=== PATIENT | male | born 1945 | race Caucasian/White ===

== ENCOUNTER 2019-08-17 13:29 | Inpatient (IN) ==
[2019-08-17] MEDS ORDERED: ASPIRIN 325 MG TABLET PO STA (14:00)
[2019-08-17 14:13] LABS: Basophils % 0.3 % (0.0-0.8); Eosinophils % 0.1 % (0.00-10.9); Hematocrit 51.2 VOL% (42.0-52.0); Immature Granulocytes % 0.4 %; Immature Granulocytes Absolute 0.06 #; Lymphocytes # 0.8 10*3/uL (1.4-4.0); Lymphocytes % 5.2 % (21.2-54.2); Mean Corpuscular HGB Conc 33.2 GM/DL (32-36); Mean Corpuscular Volume 92.4 FL (87-102); Mean Platelet Volume 9.6 FL (9.6-12.0); Monocytes % 5.9 % (1.7-12.7); Neutrophils % 88.1 % (38.7-73.9); Platelet Count 325 T/CUMM (130-400); Red Blood Count 5.54 MC/CUMM (3.8-5.5); Red Cell Distribution Width 12.5 % (9.3-17.3); White Blood Count 14.4 T/CUMM (4-12)
[2019-08-17 14:21] LABS: Albumin 3.4 G/DL (3.4-5.0); Bilirubin,Total 2.1 MG/DL (0.2-1.0); Calcium 8.4 MG/DL (8.5-10.1); INR 1.1; Osmolality,Calculated 283.7 MOS/KG (273-304); PT Patient Result 11.9 SECS (9.8-11.9); Total Protein 7.2 G/DL (6.4-8.3)
[2019-08-17] MEDS ORDERED: GLUCAGON 1 MG VIAL IM PRN (15:17)
[2019-08-17] MEDS ORDERED: DEXTROSE 10% 250 ML BAG IV PRN (15:17)
[2019-08-17] MEDS ORDERED: ACETAMINOPHEN 325 MG TABLET PO PRN (16:16)
[2019-08-17] MEDS: INSULIN REGULAR 100 UNIT/ML SUBCUT SCH ×2 (16:45→22:12)
[2019-08-17] MEDS: SODIUM CHLORIDE 0.9% 1,000 ML IV SCH (17:16)
[2019-08-17] MEDS: ONDANSETRON 4 MG/2 ML VIAL IV PRN ×2 (17:25→20:46)
[2019-08-17] MEDS ORDERED: ALUMINUM/MAGNES/SIMETH MAX STR 30 ML UDCUP PO PRN (20:36)
[2019-08-17] MEDS: ASCORBIC ACID 500 MG TABLET PO SCH (21:20)
[2019-08-17] MEDS: ATORVASTATIN 20 MG TABLET PO SCH (21:20)
[2019-08-17] MEDS: METOPROLOL TARTRATE 25 MG TABLET PO SCH (21:21)
[2019-08-17] MEDS: FLUTICASONE/SALMETEROL 250-50 DISKUS 14 DOSE INH SCH (23:10)
[2019-08-18] MEDS: ONDANSETRON 4 MG/2 ML VIAL IV PRN ×3 (01:02→10:47)
[2019-08-18] MEDS: SODIUM CHLORIDE 0.9% 1,000 ML IV SCH ×3 (03:23→21:00)
[2019-08-18 04:55] LABS: Apearance,Urine CLEAR (Clear); Bilirubin,Urine Negative (Negative); Blood, Urine Negative (Negative); Glucose,Urine (UA) >=500 mg/dL (Negative); Hyaline Casts,Urine 42 /LPF (0-3); Ketones,Urine 5 mg/dL (Negative); Mucus,Urine Occasional /LPF (Occasional); Nitrite,Urine Negative (Negative); Protein,Urine 100 MG/DL; RBC,Urine 2 /HPF (0-4); Renal Epithelial Cells,Urine Occasional /HPF (<1); Squamous Epithelial Cell,Urine Occasional /HPF (0-10); Urine Color Amber (Yellow); WBC,Urine 1 /HPF (0-6)
[2019-08-18 05:44] LABS: Basophils % 0.3 % (0.0-0.8); Eosinophils % 0.4 % (0.00-10.9); Hematocrit 49.4 VOL% (42.0-52.0); Hemoglobin 16.1 GM/DL (14.0-18.0); Immature Granulocytes % 0.6 %; Immature Granulocytes Absolute 0.05 #; Lymphocytes # 1.2 10*3/uL (1.4-4.0); Lymphocytes % 13.8 % (21.2-54.2); Mean Corpuscular HGB Conc 32.6 GM/DL (32-36); Mean Corpuscular Volume 93.4 FL (87-102); Monocytes % 10.4 % (1.7-12.7); Neutrophils % 74.5 % (38.7-73.9); Platelet Count 324 T/CUMM (130-400); Red Blood Count 5.29 MC/CUMM (3.8-5.5); Red Cell Distribution Width 12.4 % (9.3-17.3)
[2019-08-18 06:07] LABS: Albumin 3.1 G/DL (3.4-5.0); Bilirubin,Total 3.4 MG/DL (0.2-1.0); Calcium 8.2 MG/DL (8.5-10.1); Osmolality,Calculated 291.2 MOS/KG (273-304); Total Protein 6.6 G/DL (6.4-8.3)
[2019-08-18] MEDS ORDERED: RIVAROXABAN 20 MG TABLET PO SCH (09:00)
[2019-08-18] MEDS ORDERED: VALSARTAN 80 MG TABLET PO SCH (09:00)
[2019-08-18] MEDS ORDERED: PANTOPRAZOLE 40 MG TABLET PO SCH (09:00)
[2019-08-18] MEDS ORDERED: INSULIN GLARGINE 100 UNIT/ML SUBCUT SCH (09:00)
[2019-08-18] MEDS: METOPROLOL TARTRATE 25 MG TABLET PO SCH ×2 (09:44→22:50)
[2019-08-18] MEDS: ASPIRIN EC 81 MG TABLET PO SCH (09:45)
[2019-08-18] MEDS: ASCORBIC ACID 500 MG TABLET PO SCH (09:45)
[2019-08-18] MEDS: FLUTICASONE/SALMETEROL 250-50 DISKUS 14 DOSE INH SCH ×2 (09:45→22:50)
[2019-08-18] MEDS: INSULIN REGULAR 100 UNIT/ML SUBCUT SCH ×4 (09:47→22:51)
[2019-08-18] MEDS ORDERED: SODIUM PHOSPHATE ENEMA 133 ML BOTTLE RECTAL ONE (12:31)
[2019-08-18] MEDS ORDERED: PHENOL 1.4% THROAT SPRAY 177 ML BOTTLE PO PRN (13:01)
[2019-08-18] MEDS: METOCLOPRAMIDE 10 MG/2 ML VIAL IV SCH ×2 (17:25→23:12)
[2019-08-18] MEDS: ATORVASTATIN 20 MG TABLET PO SCH (22:50)
[2019-08-19 05:32] LABS: Basophils % 0.5 % (0.0-0.8); Eosinophils # 0.3 10*3/uL (0.0-0.87); Eosinophils % 3.1 % (0.00-10.9); Hematocrit 46.6 VOL% (42.0-52.0); Hemoglobin 14.7 GM/DL (14.0-18.0); Immature Granulocytes % 0.4 %; Immature Granulocytes Absolute 0.03 #; Lymphocytes # 1.8 10*3/uL (1.4-4.0); Lymphocytes % 21.9 % (21.2-54.2); Mean Corpuscular HGB Conc 31.5 GM/DL (32-36); Mean Corpuscular Volume 96.1 FL (87-102); Mean Platelet Volume 10.3 FL (9.6-12.0); Monocytes % 11.3 % (1.7-12.7); Neutrophils % 62.8 % (38.7-73.9); Platelet Count 306 T/CUMM (130-400); Red Blood Count 4.85 MC/CUMM (3.8-5.5); Red Cell Distribution Width 12.6 % (9.3-17.3)
[2019-08-19 05:55] LABS: Risk Ratio 2.39; VLDL CHOLESTEROL 21.4 MG/DL
[2019-08-19] MEDS: METOCLOPRAMIDE 10 MG/2 ML VIAL IV SCH ×2 (06:03→12:27)
[2019-08-19 07:27] LABS: Calcium 7.8 MG/DL (8.5-10.1); Osmolality,Calculated 288.5 MOS/KG (273-304)
[2019-08-19] MEDS ORDERED: POTASSIUM CHLORIDE RIDER 10 MEQ in PREMIX 1 EACH IV PRN (07:45)
[2019-08-19] MEDS: INSULIN REGULAR 100 UNIT/ML SUBCUT SCH ×4 (10:27→21:50)
[2019-08-19] MEDS: INSULIN GLARGINE 100 UNIT/ML SUBCUT SCH (10:28)
[2019-08-19] MEDS: FLUTICASONE/SALMETEROL 250-50 DISKUS 14 DOSE INH SCH ×2 (10:28→20:03)
[2019-08-19] MEDS: ASPIRIN EC 81 MG TABLET PO SCH (10:28)
[2019-08-19] MEDS: METOPROLOL TARTRATE 25 MG TABLET PO SCH ×2 (10:29→21:47)
[2019-08-19] MEDS: SODIUM CHLORIDE 0.9% 1,000 ML IV SCH ×3 (11:03→18:54)
[2019-08-19] MEDS ORDERED: POTASSIUM CHLORIDE 20 MEQ TABLET PO ONE (14:41)
[2019-08-19] MEDS ORDERED: POTASSIUM CHLORIDE 20 MEQ TABLET PO PRN (21:33)
[2019-08-19] MEDS: ATORVASTATIN 20 MG TABLET PO SCH (21:48)
[2019-08-20] MEDS: SODIUM CHLORIDE 0.9% 1,000 ML IV SCH ×2 (05:05→16:08)
[2019-08-20 05:23] LABS: Basophils % 0.5 % (0.0-0.8); Eosinophils # 0.4 10*3/uL (0.0-0.87); Eosinophils % 4.7 % (0.00-10.9); Hematocrit 43.5 VOL% (42.0-52.0); Immature Granulocytes % 0.5 %; Immature Granulocytes Absolute 0.04 #; Lymphocytes # 1.7 10*3/uL (1.4-4.0); Lymphocytes % 21.6 % (21.2-54.2); Mean Corpuscular HGB Conc 32.2 GM/DL (32-36); Mean Platelet Volume 9.3 FL (9.6-12.0); Monocytes % 10.4 % (1.7-12.7); Neutrophils % 62.3 % (38.7-73.9); Platelet Count 306 T/CUMM (130-400); Red Blood Count 4.63 MC/CUMM (3.8-5.5); Red Cell Distribution Width 12.5 % (9.3-17.3); White Blood Count 8.1 T/CUMM (4-12)
[2019-08-20 05:47] LABS: Calcium 8.1 MG/DL (8.5-10.1); Osmolality,Calculated 283.5 MOS/KG (273-304)
[2019-08-20] MEDS: METOPROLOL TARTRATE 25 MG TABLET PO SCH ×2 (08:28→21:49)
[2019-08-20] MEDS: INSULIN GLARGINE 100 UNIT/ML SUBCUT SCH (08:28)
[2019-08-20] MEDS: ASPIRIN EC 81 MG TABLET PO SCH (08:28)
[2019-08-20] MEDS: FLUTICASONE/SALMETEROL 250-50 DISKUS 14 DOSE INH SCH ×2 (08:30→21:49)
[2019-08-20] MEDS: INSULIN REGULAR 100 UNIT/ML SUBCUT SCH ×4 (08:39→21:48)
[2019-08-20] MEDS: ALPRAZolam 0.5 MG TABLET PO PRN (21:49)
[2019-08-20] MEDS: ATORVASTATIN 20 MG TABLET PO SCH (21:49)
[2019-08-21] MEDS: SODIUM CHLORIDE 0.9% 1,000 ML IV SCH ×4 (01:16→21:29)
[2019-08-21] MEDS: ONDANSETRON 4 MG/2 ML VIAL IV PRN ×2 (02:45→23:38)
[2019-08-21 05:18] LABS: Basophils % 0.5 % (0.0-0.8); Eosinophils # 0.3 10*3/uL (0.0-0.87); Eosinophils % 4.7 % (0.00-10.9); Hematocrit 38.6 VOL% (42.0-52.0); Hemoglobin 12.6 GM/DL (14.0-18.0); Immature Granulocytes % 0.5 %; Immature Granulocytes Absolute 0.03 #; Mean Corpuscular HGB Conc 32.6 GM/DL (32-36); Mean Corpuscular Volume 93.9 FL (87-102); Monocytes % 10.6 % (1.7-12.7); Neutrophils % 68.7 % (38.7-73.9); Platelet Count 302 T/CUMM (130-400); Red Blood Count 4.11 MC/CUMM (3.8-5.5); Red Cell Distribution Width 12.4 % (9.3-17.3); White Blood Count 6.4 T/CUMM (4-12)
[2019-08-21 05:53] LABS: Calcium 7.9 MG/DL (8.5-10.1); Osmolality,Calculated 284.3 MOS/KG (273-304)
[2019-08-21] MEDS: INSULIN REGULAR 100 UNIT/ML SUBCUT SCH ×4 (09:47→21:26)
[2019-08-21] MEDS: INSULIN GLARGINE 100 UNIT/ML SUBCUT SCH (09:48)
[2019-08-21] MEDS: FLUTICASONE/SALMETEROL 250-50 DISKUS 14 DOSE INH SCH ×2 (09:49→21:27)
[2019-08-21] MEDS: METOPROLOL TARTRATE 25 MG TABLET PO SCH ×2 (09:50→21:26)
[2019-08-21] MEDS: ASPIRIN EC 81 MG TABLET PO SCH (09:50)
[2019-08-21] MEDS: ALPRAZolam 0.5 MG TABLET PO PRN (21:26)
[2019-08-21] MEDS: ATORVASTATIN 20 MG TABLET PO SCH (21:26)
[2019-08-22 05:04] LABS: Basophils % 0.5 % (0.0-0.8); Eosinophils # 0.3 10*3/uL (0.0-0.87); Eosinophils % 5.4 % (0.00-10.9); Hematocrit 38.8 VOL% (42.0-52.0); Hemoglobin 12.4 GM/DL (14.0-18.0); Immature Granulocytes % 0.3 %; Immature Granulocytes Absolute 0.02 #; Lymphocytes # 1.3 10*3/uL (1.4-4.0); Lymphocytes % 20.9 % (21.2-54.2); Mean Corpuscular Volume 95.6 FL (87-102); Mean Platelet Volume 9.7 FL (9.6-12.0); Monocytes % 10.2 % (1.7-12.7); Neutrophils % 62.7 % (38.7-73.9); Platelet Count 330 T/CUMM (130-400); Red Blood Count 4.06 MC/CUMM (3.8-5.5); Red Cell Distribution Width 12.4 % (9.3-17.3); White Blood Count 6.2 T/CUMM (4-12)
[2019-08-22 05:32] LABS: Calcium 8.2 MG/DL (8.5-10.1); Osmolality,Calculated 281.3 MOS/KG (273-304)
[2019-08-22] MEDS: SODIUM CHLORIDE 0.9% 1,000 ML IV SCH ×2 (06:38→07:37)
[2019-08-22] MEDS: INSULIN REGULAR 100 UNIT/ML SUBCUT SCH ×4 (09:20→21:16)
[2019-08-22] MEDS: FLUTICASONE/SALMETEROL 250-50 DISKUS 14 DOSE INH SCH ×2 (09:40→21:06)
[2019-08-22] MEDS: ASPIRIN EC 81 MG TABLET PO SCH (09:42)
[2019-08-22] MEDS: METOPROLOL TARTRATE 25 MG TABLET PO SCH ×2 (09:42→21:06)
[2019-08-22] MEDS: INSULIN GLARGINE 100 UNIT/ML SUBCUT SCH (09:43)
[2019-08-22] MEDS: ALPRAZolam 0.5 MG TABLET PO PRN (21:07)
[2019-08-22] MEDS: ATORVASTATIN 20 MG TABLET PO SCH (21:07)
[2019-08-22] MEDS: ONDANSETRON 4 MG/2 ML VIAL IV PRN (23:50)
[2019-08-23 06:18] LABS: Basophils % 0.6 % (0.0-0.8); Eosinophils # 0.3 10*3/uL (0.0-0.87); Eosinophils % 5.2 % (0.00-10.9); Hemoglobin 12.5 GM/DL (14.0-18.0); Immature Granulocytes % 0.5 %; Immature Granulocytes Absolute 0.03 #; Lymphocytes # 1.5 10*3/uL (1.4-4.0); Lymphocytes % 23.1 % (21.2-54.2); Mean Corpuscular HGB Conc 32.1 GM/DL (32-36); Mean Corpuscular Volume 92.9 FL (87-102); Mean Platelet Volume 9.7 FL (9.6-12.0); Monocytes % 10.5 % (1.7-12.7); Neutrophils % 60.1 % (38.7-73.9); Platelet Count 311 T/CUMM (130-400); Red Cell Distribution Width 12.4 % (9.3-17.3); White Blood Count 6.4 T/CUMM (4-12)
[2019-08-23 06:52] LABS: Calcium 8.4 MG/DL (8.5-10.1); Osmolality,Calculated 278.3 MOS/KG (273-304)
[2019-08-23] MEDS: FLUTICASONE/SALMETEROL 250-50 DISKUS 14 DOSE INH SCH (08:36)
[2019-08-23] MEDS: ASPIRIN EC 81 MG TABLET PO SCH (08:36)
[2019-08-23] MEDS: INSULIN REGULAR 100 UNIT/ML SUBCUT SCH ×2 (08:37→11:44)
[2019-08-23] MEDS: METOPROLOL TARTRATE 25 MG TABLET PO SCH (08:37)
[2019-08-23] MEDS: INSULIN GLARGINE 100 UNIT/ML SUBCUT SCH (08:37)
[2019-08-23 11:59] VITALS: BP 144/72
== END 2019-08-23 15:31 | disposition home or self-care (01) | DRG 389 ==
LOC: EDBD → EDUNIT# → N.ED 13:29 → N.EDINP 13:29 → N.TELEN 16:16 → SUATTDRO 08-18 12:27
PROVIDERS: ADMIT Internal Medicine; ATTEND Internal Medicine

== ENCOUNTER 2019-12-03 14:40 | Inpatient (IN) ==
[2019-12-03] MEDS ORDERED: ASPIRIN 325 MG TABLET PO STA (15:10)
[2019-12-03 15:29] LABS: Basophils # 0.1 10*3/uL (0.0-0.2); Basophils % 0.8 % (0.0-0.8); Eosinophils # 0.2 10*3/uL (0.0-0.87); Eosinophils % 1.7 % (0.00-10.9); Hematocrit 47.3 VOL% (42.0-52.0); Hemoglobin 15.7 GM/DL (14.0-18.0); Immature Granulocytes % 0.5 %; Immature Granulocytes Absolute 0.05 #; Lymphocytes # 1.4 10*3/uL (1.4-4.0); Lymphocytes % 14.5 % (21.2-54.2); Mean Corpuscular HGB Conc 33.2 GM/DL (32-36); Mean Corpuscular Volume 91.3 FL (87-102); Mean Platelet Volume 11.3 FL (9.6-12.0); Monocytes % 6.3 % (1.7-12.7); Neutrophils % 76.2 % (38.7-73.9); Platelet Count 135 T/CUMM (130-400); Red Blood Count 5.18 MC/CUMM (3.8-5.5); Red Cell Distribution Width 12.7 % (9.3-17.3); White Blood Count 9.9 T/CUMM (4-12)
[2019-12-03 15:35] LABS: Calcium 8.8 MG/DL (8.5-10.1); Osmolality,Calculated 289.8 MOS/KG (273-304)
[2019-12-03 16:02] LABS: Platelet Estimate Adequate
[2019-12-03] MEDS ORDERED: GLUCAGON 1 MG VIAL IM PRN ×2 (16:49)
[2019-12-03] MEDS ORDERED: ACETAMINOPHEN 325 MG TABLET PO PRN (16:49)
[2019-12-03] MEDS ORDERED: ONDANSETRON 4 MG/2 ML VIAL IV PRN (16:49)
[2019-12-03] MEDS ORDERED: DEXTROSE 50% 25 GM/50 ML VIAL IV PRN ×2 (16:49)
[2019-12-03] MEDS ORDERED: ALBUTEROL 2.5 MG/3 ML NEB RESP TX PRN (17:03)
[2019-12-03] MEDS ORDERED: ATORVASTATIN 20 MG TABLET PO SCH (21:00)
[2019-12-03] MEDS ORDERED: METOPROLOL TARTRATE 25 MG TABLET PO SCH (21:00)
[2019-12-03] MEDS: FLUTICASONE 50 MCG NASAL SPRAY 16 GM BOTTLE BOTH NARES SCH (21:58)
[2019-12-03] MEDS: FLUTICASONE/SALMETEROL 250-50 DISKUS 14 DOSE INH SCH (21:58)
[2019-12-03] MEDS: INSULIN LISPRO 100 UNIT/ML SUBCUT SCH (21:59)
[2019-12-04 03:48] LABS: Basophils # 0.1 10*3/uL (0.0-0.2); Basophils % 0.5 % (0.0-0.8); Eosinophils # 0.3 10*3/uL (0.0-0.87); Eosinophils % 2.7 % (0.00-10.9); Hemoglobin 15.2 GM/DL (14.0-18.0); Immature Granulocytes % 0.3 %; Immature Granulocytes Absolute 0.03 #; Lymphocytes # 1.9 10*3/uL (1.4-4.0); Lymphocytes % 20.4 % (21.2-54.2); Mean Corpuscular HGB Conc 33.8 GM/DL (32-36); Mean Corpuscular Volume 90.4 FL (87-102); Mean Platelet Volume 9.9 FL (9.6-12.0); Monocytes % 8.6 % (1.7-12.7); Neutrophils % 67.5 % (38.7-73.9); Platelet Count 273 T/CUMM (130-400); Red Blood Count 4.98 MC/CUMM (3.8-5.5); Red Cell Distribution Width 12.8 % (9.3-17.3); White Blood Count 9.1 T/CUMM (4-12)
[2019-12-04 04:20] LABS: Calcium 8.4 MG/DL (8.5-10.1); Osmolality,Calculated 285.4 MOS/KG (273-304); Risk Ratio 3.77; Thyroid Stimulating Hormone 3.01 uIU/ml (0.358-3.74); VLDL CHOLESTEROL 18.4 MG/DL
[2019-12-04] MEDS: INSULIN LISPRO 100 UNIT/ML SUBCUT SCH ×2 (07:30→12:45)
[2019-12-04] MEDS ORDERED: hydroCHLOROthiazide 25 MG TABLET PO SCH (09:00)
[2019-12-04] MEDS ORDERED: ASCORBIC ACID 500 MG TABLET PO SCH ×2 (09:00→11:30)
[2019-12-04] MEDS ORDERED: METOPROLOL TARTRATE 25 MG TABLET PO SCH ×2 (09:00→11:40)
[2019-12-04] MEDS ORDERED: ASPIRIN CHEW 81 MG TABLET PO SCH (09:00)
[2019-12-04] MEDS ORDERED: OLMESARTAN 20 MG TABLET PO SCH (09:00)
[2019-12-04] MEDS ORDERED: RIVAROXABAN 20 MG TABLET PO SCH (09:00)
[2019-12-04] MEDS ORDERED: METOPROLOL TARTRATE 50 MG TABLET PO SCH (11:27)
[2019-12-04] MEDS: FLUTICASONE 50 MCG NASAL SPRAY 16 GM BOTTLE BOTH NARES SCH (11:58)
[2019-12-04] MEDS: FLUTICASONE/SALMETEROL 250-50 DISKUS 14 DOSE INH SCH (11:58)
[2019-12-04 12:12] VITALS: BP 165/73
[2019-12-04] MEDS ORDERED: POTASSIUM CHLORIDE 20 MEQ TABLET PO SCH (13:10)
== END 2019-12-04 14:30 | disposition home or self-care (01) | DRG 308 ==
LOC: EDUNIT# → EDBD → N.ED 14:40 → INTOOBSV 16:50 → OBSVTOIN 16:50 → N.EDINP 16:50 → N.TELES 17:52
PROVIDERS: ADMIT Internal Medicine; ATTEND Internal Medicine

== ENCOUNTER 2020-06-20 13:07 | Inpatient (IN) ==
[2020-06-20 11:21] LABS: Basophils # 0.1 10*3/uL (0.0-0.2); Basophils % 0.6 % (0.0-0.8); Eosinophils # 0.3 10*3/uL (0.0-0.87); Eosinophils % 3.1 % (0.00-10.9); Hemoglobin 15.1 GM/DL (14.0-18.0); Immature Granulocytes % 0.5 %; Immature Granulocytes Absolute 0.05 #; Lymphocytes # 1.8 10*3/uL (1.4-4.0); Lymphocytes % 19.3 % (21.2-54.2); Mean Corpuscular HGB Conc 32.1 GM/DL (32-36); Mean Corpuscular Volume 92.3 FL (87-102); Mean Platelet Volume 9.8 FL (9.6-12.0); Neutrophils % 69.5 % (38.7-73.9); Platelet Count 268 T/CUMM (130-400); Red Blood Count 5.09 MC/CUMM (3.8-5.5); Red Cell Distribution Width 12.5 % (9.3-17.3); White Blood Count 9.4 T/CUMM (4-12)
[2020-06-20 11:44] LABS: Albumin 3.3 G/DL (3.4-5.0); Bilirubin,Total 1.5 MG/DL (0.2-1.0); Calcium 8.6 MG/DL (8.5-10.1); Osmolality,Calculated 290.3 MOS/KG (273-304); Potassium 4.3 MMOL/L (3.5-5.1)
[2020-06-20] MEDS: INSULIN REGULAR 100 UNIT/ML SUBCUT SCH ×2 (11:51→11:53)
[2020-06-20] MEDS: ASCORBIC ACID 500 MG TABLET PO SCH ×2 (11:52→22:15)
[2020-06-20] MEDS: APIXABAN 5 MG TABLET PO SCH ×2 (11:52→22:16)
[2020-06-20] MEDS: ATORVASTATIN 20 MG TABLET PO SCH (11:53)
[2020-06-20] MEDS: PANTOPRAZOLE 40 MG TABLET PO SCH (11:53)
[2020-06-20] MEDS: ASPIRIN EC 81 MG TABLET PO SCH (11:53)
[~2020-06-20 13:07] MED LIST: ACETAMINOPHEN 325 MG TABLET PO PRN; ALBUTEROL 2.5 MG/3 ML NEB RESP TX PRN; ALPRAZolam 0.25 MG TABLET PO PRN; BISACODYL 5 MG TABLET PO PRN; MAGNESIUM SULF RIDER 2 GM in PREMIX 1 EACH IV PRN; MAGNESIUM SULF RIDER 4 GM in PREMIX 1 EACH IV PRN; METOPROLOL TARTRATE 25 MG TABLET PO SCH; OLMESARTAN 20 MG TABLET PO SCH; ONDANSETRON 4 MG/2 ML VIAL IV PRN; POTASSIUM CHLORIDE 20 MEQ TABLET PO PRN; SOTALOL 80 MG TABLET PO SCH; ZALEPLON 5 MG CAPSULE PO PRN; hydrALAZINE 20 MG/1 ML VIAL IV PRN; hydroCHLOROthiazide 25 MG TABLET PO PRN
[2020-06-20] MEDS: INSULIN LISPRO 100 UNIT/ML SUBCUT SCH (16:26)
[2020-06-20] MEDS: DOXAZOSIN 1 MG TABLET PO SCH (22:21)
[2020-06-20] MEDS: FLUTICASONE/SALMETEROL 250-50 DISKUS 14 DOSE INH SCH (22:22)
[2020-06-20] MEDS: FLUTICASONE 50 MCG NASAL SPRAY 16 GM BOTTLE BOTH NARES SCH (22:22)
[2020-06-20] MEDS: INSULIN NPH/REGULAR 70/30 100 UNIT/ML SUBCUT SCH (23:12)
[2020-06-21 05:59] LABS: Basophils # 0.1 10*3/uL (0.0-0.2); Basophils % 0.8 % (0.0-0.8); Eosinophils # 0.4 10*3/uL (0.0-0.87); Eosinophils % 4.6 % (0.00-10.9); Hematocrit 44.2 VOL% (42.0-52.0); Hemoglobin 14.5 GM/DL (14.0-18.0); Immature Granulocytes % 0.5 %; Immature Granulocytes Absolute 0.04 #; Lymphocytes # 2.1 10*3/uL (1.4-4.0); Lymphocytes % 24.4 % (21.2-54.2); Mean Corpuscular HGB Conc 32.8 GM/DL (32-36); Mean Corpuscular Volume 91.5 FL (87-102); Mean Platelet Volume 11.3 FL (9.6-12.0); Monocytes % 8.8 % (1.7-12.7); Neutrophils % 60.9 % (38.7-73.9); Platelet Count 249 T/CUMM (130-400); Red Blood Count 4.83 MC/CUMM (3.8-5.5); Red Cell Distribution Width 12.4 % (9.3-17.3); White Blood Count 8.4 T/CUMM (4-12)
[2020-06-21 06:23] LABS: Calcium 8.4 MG/DL (8.5-10.1); Osmolality,Calculated 286.5 MOS/KG (273-304); Potassium 4.1 MMOL/L (3.5-5.1)
[2020-06-21] MEDS: INSULIN LISPRO 100 UNIT/ML SUBCUT SCH ×3 (08:26→17:11)
[2020-06-21] MEDS: INSULIN NPH/REGULAR 70/30 100 UNIT/ML SUBCUT SCH ×2 (08:26→20:45)
[2020-06-21] MEDS ORDERED: SOTALOL 80 MG TABLET PO SCH (09:00)
[2020-06-21] MEDS: FLUTICASONE/SALMETEROL 250-50 DISKUS 14 DOSE INH SCH ×2 (09:23→20:45)
[2020-06-21] MEDS: ASPIRIN EC 81 MG TABLET PO SCH (09:23)
[2020-06-21] MEDS: ASCORBIC ACID 500 MG TABLET PO SCH ×2 (09:24→20:42)
[2020-06-21] MEDS: ATORVASTATIN 20 MG TABLET PO SCH (09:24)
[2020-06-21] MEDS: APIXABAN 5 MG TABLET PO SCH (09:24)
[2020-06-21] MEDS: PANTOPRAZOLE 40 MG TABLET PO SCH (09:24)
[2020-06-21] MEDS: FLUTICASONE 50 MCG NASAL SPRAY 16 GM BOTTLE BOTH NARES SCH ×2 (09:24→20:45)
[2020-06-21] MEDS: OLMESARTAN 20 MG TABLET PO SCH (09:24)
[2020-06-21] MEDS ORDERED: NITROGLYCERIN SL 0.4 MG TABLET SL PRN (09:32)
[2020-06-21] MEDS ORDERED: amLODIPine 5 MG TABLET PO SCH (10:30)
[2020-06-21] MEDS: DOXAZOSIN 1 MG TABLET PO SCH (20:44)
[2020-06-21] MEDS: FLECAINIDE 50 MG TABLET PO SCH (20:45)
[2020-06-21] MEDS: ALUMINUM/MAGNES/SIMETH MAX STR 30 ML UDCUP PO PRN (21:34)
[2020-06-22 06:34] LABS: Basophils # 0.1 10*3/uL (0.0-0.2); Basophils % 0.7 % (0.0-0.8); Eosinophils # 0.4 10*3/uL (0.0-0.87); Eosinophils % 5.2 % (0.00-10.9); Hematocrit 43.4 VOL% (42.0-52.0); Hemoglobin 14.3 GM/DL (14.0-18.0); Immature Granulocytes % 0.4 %; Immature Granulocytes Absolute 0.03 #; Lymphocytes # 1.6 10*3/uL (1.4-4.0); Lymphocytes % 23.4 % (21.2-54.2); Mean Corpuscular HGB Conc 32.9 GM/DL (32-36); Mean Corpuscular Volume 90.6 FL (87-102); Mean Platelet Volume 10.7 FL (9.6-12.0); Monocytes % 7.9 % (1.7-12.7); Neutrophils % 62.4 % (38.7-73.9); Platelet Count 241 T/CUMM (130-400); Red Blood Count 4.79 MC/CUMM (3.8-5.5); Red Cell Distribution Width 12.3 % (9.3-17.3); White Blood Count 6.7 T/CUMM (4-12)
[2020-06-22 07:05] LABS: Calcium 8.5 MG/DL (8.5-10.1); Osmolality,Calculated 288.4 MOS/KG (273-304); Potassium 3.9 MMOL/L (3.5-5.1)
[2020-06-22] MEDS: INSULIN LISPRO 100 UNIT/ML SUBCUT SCH ×3 (08:14→16:50)
[2020-06-22] MEDS: FLUTICASONE/SALMETEROL 250-50 DISKUS 14 DOSE INH SCH ×2 (08:36→21:37)
[2020-06-22] MEDS: ASPIRIN EC 81 MG TABLET PO SCH (08:36)
[2020-06-22] MEDS: OLMESARTAN 20 MG TABLET PO SCH (08:37)
[2020-06-22] MEDS: FLUTICASONE 50 MCG NASAL SPRAY 16 GM BOTTLE BOTH NARES SCH ×2 (08:38→21:37)
[2020-06-22] MEDS: ASCORBIC ACID 500 MG TABLET PO SCH ×2 (08:38→21:36)
[2020-06-22] MEDS: ATORVASTATIN 20 MG TABLET PO SCH (08:38)
[2020-06-22] MEDS: FLECAINIDE 50 MG TABLET PO SCH ×2 (08:38→21:37)
[2020-06-22] MEDS: INSULIN NPH/REGULAR 70/30 100 UNIT/ML SUBCUT SCH ×2 (08:38→22:09)
[2020-06-22] MEDS: PANTOPRAZOLE 40 MG TABLET PO SCH (08:38)
[2020-06-22] MEDS: amLODIPine 10 MG TABLET PO SCH (08:38)
[2020-06-22] MEDS: APIXABAN 5 MG TABLET PO SCH ×2 (08:38→21:36)
[2020-06-22] MEDS: DOXAZOSIN 1 MG TABLET PO SCH (21:36)
[2020-06-22] MEDS: ALUMINUM/MAGNES/SIMETH MAX STR 30 ML UDCUP PO PRN (22:39)
[2020-06-23 05:43] LABS: Basophils # 0.1 10*3/uL (0.0-0.2); Basophils % 0.6 % (0.0-0.8); Eosinophils # 0.4 10*3/uL (0.0-0.87); Eosinophils % 4.6 % (0.00-10.9); Hematocrit 42.8 VOL% (42.0-52.0); Hemoglobin 14.2 GM/DL (14.0-18.0); Immature Granulocytes % 0.3 %; Immature Granulocytes Absolute 0.02 #; Lymphocytes # 1.9 10*3/uL (1.4-4.0); Mean Corpuscular HGB Conc 33.2 GM/DL (32-36); Mean Corpuscular Volume 91.3 FL (87-102); Mean Platelet Volume 10.9 FL (9.6-12.0); Monocytes % 8.5 % (1.7-12.7); Platelet Count 249 T/CUMM (130-400); Red Blood Count 4.69 MC/CUMM (3.8-5.5); Red Cell Distribution Width 12.4 % (9.3-17.3); White Blood Count 7.8 T/CUMM (4-12)
[2020-06-23 06:12] LABS: Calcium 8.5 MG/DL (8.5-10.1); Osmolality,Calculated 283.5 MOS/KG (273-304); Potassium 4.1 MMOL/L (3.5-5.1)
[2020-06-23 06:55] LABS: Burr Cells Few; Ovalocytes Few
[2020-06-23 06:56] LABS: Platelet Estimate Normal; Schistocytes Few; Tear Drop Cells Slight
[2020-06-23] MEDS: OLMESARTAN 20 MG TABLET PO SCH (08:22)
[2020-06-23] MEDS: FLECAINIDE 50 MG TABLET PO SCH (08:23)
[2020-06-23] MEDS: PANTOPRAZOLE 40 MG TABLET PO SCH (08:23)
[2020-06-23] MEDS: ASCORBIC ACID 500 MG TABLET PO SCH (08:23)
[2020-06-23] MEDS: ASPIRIN EC 81 MG TABLET PO SCH (08:23)
[2020-06-23] MEDS: FLUTICASONE 50 MCG NASAL SPRAY 16 GM BOTTLE BOTH NARES SCH (08:23)
[2020-06-23] MEDS: amLODIPine 10 MG TABLET PO SCH (08:23)
[2020-06-23] MEDS: FLUTICASONE/SALMETEROL 250-50 DISKUS 14 DOSE INH SCH (08:23)
[2020-06-23] MEDS: ATORVASTATIN 20 MG TABLET PO SCH (08:23)
[2020-06-23] MEDS: APIXABAN 5 MG TABLET PO SCH (08:23)
[2020-06-23] MEDS: INSULIN LISPRO 100 UNIT/ML SUBCUT SCH (08:24)
[2020-06-23 08:39] VITALS: BP 177/79
[2020-06-23] MEDS: INSULIN NPH/REGULAR 70/30 100 UNIT/ML SUBCUT SCH (08:50)
== END 2020-06-23 09:52 | disposition home or self-care (01) | DRG 309 ==
LOC: N.TELEN
PROVIDERS: ADMIT Internal Medicine Interventional Cardiology; ATTEND Internal Medicine Interventional Cardiology

== ENCOUNTER 2021-11-26 09:16 | Observation (INO) ==
[2021-11-26 09:44] LABS: Basophils % 0.5 % (0.0-0.8); Eosinophils # 0.2 10*3/uL (0.0-0.87); Eosinophils % 2.5 % (0.00-10.9); Hematocrit 44.9 VOL% (42.0-52.0); Hemoglobin 14.9 GM/DL (14.0-18.0); Immature Granulocytes % 0.6 %; Immature Granulocytes Absolute 0.05 #; Lymphocytes # 2.3 10*3/uL (1.4-4.0); Lymphocytes % 28.6 % (21.2-54.2); Mean Corpuscular HGB Conc 33.2 GM/DL (32-36); Mean Platelet Volume 9.4 FL (9.6-12.0); Monocytes # 0.6 10*3/uL (0.11-0.8); Monocytes % 6.8 % (1.7-12.7); Platelet Count 317 T/CUMM (130-400); Red Blood Count 4.88 MC/CUMM (3.8-5.5); Red Cell Distribution Width 12.8 % (9.3-17.3); White Blood Count 8.1 T/CUMM (4-12)
[2021-11-26] MEDS ORDERED: ASPIRIN 325 MG TABLET PO STA (09:46)
[2021-11-26] MEDS ORDERED: NITROGLYCERIN SL 0.4 MG TABLET SL PRN (09:46)
[2021-11-26 10:09] LABS: Albumin 3.5 G/DL (3.4-5.0); Bilirubin,Total 1.6 MG/DL (0.20-1.00); Calcium 9.4 MG/DL (8.5-10.1); Osmolality,Calculated 293.3 MOS/KG (273-304); Total Protein 6.7 G/DL (6.4-8.2)
[2021-11-26] MEDS ORDERED: ONDANSETRON 4 MG/2 ML VIAL IV PRN (11:25)
[2021-11-26] MEDS ORDERED: PROMETHAZINE 25 MG TABLET PO PRN (11:25)
[2021-11-26] MEDS ORDERED: ACETAMINOPHEN 325 MG TABLET PO PRN (11:25)
[2021-11-26] MEDS ORDERED: ALUMINUM/MAGNES/SIMETH MAX STR 30 ML UDCUP PO PRN (11:25)
[2021-11-26] MEDS ORDERED: hydrALAZINE 20 MG/1 ML VIAL IV PRN (11:25)
[2021-11-26] MEDS ORDERED: MAGNESIUM SULF RIDER 4 GM/100 ML PREMIX IV PRN (11:25)
[2021-11-26] MEDS ORDERED: DOCUSATE SODIUM 100 MG CAPSULE PO PRN (11:25)
[2021-11-26] MEDS ORDERED: diphenhydrAMINE CAP 25 MG CAPSULE PO PRN (11:25)
[2021-11-26] MEDS ORDERED: guaiFENesin/DM ER 600-30 MG TABLET PO PRN (11:25)
[2021-11-26] MEDS ORDERED: MAGNESIUM SULF RIDER 2 GM/50 ML PREMIX IV PRN (11:25)
[2021-11-26] MEDS ORDERED: GLUCAGON 1 MG VIAL IM PRN (13:18)
[2021-11-26] MEDS ORDERED: DEXTROSE 10% 250 ML BAG IV PRN (13:18)
[2021-11-26] MEDS: ALBUTEROL 2.5 MG/3 ML NEB RESP TX SCH ×2 (14:18→19:35)
[2021-11-26] MEDS ORDERED: ALBUTEROL 2.5 MG/3 ML NEB RESP TX PRN (14:36)
[2021-11-26] MEDS: INSULIN LISPRO 100 UNIT/ML SUBCUT SCH ×3 (16:53→21:42)
[2021-11-26] MEDS ORDERED: APIXABAN 5 MG TABLET PO SCH (21:00)
[2021-11-26] MEDS: ATORVASTATIN 20 MG TABLET PO SCH (21:40)
[2021-11-26] MEDS: ASCORBIC ACID 500 MG TABLET PO SCH (21:40)
[2021-11-26] MEDS: FLECAINIDE 100 MG TABLET PO SCH (21:41)
[2021-11-26] MEDS: ASPIRIN EC 81 MG TABLET PO SCH (21:41)
[2021-11-26] MEDS: FLUTICASONE 50 MCG NASAL SPRAY 16 GM BOTTLE BOTH NARES SCH (21:42)
[2021-11-26] MEDS: FLUTICASONE/SALMETEROL 250-50 DISKUS 14 DOSE INH SCH (21:42)
[2021-11-26] MEDS: INSULIN NPH 100 UNIT/ML SUBCUT SCH (21:43)
[2021-11-26] MEDS: ZALEPLON 5 MG CAPSULE PO PRN (21:48)
[2021-11-27] MEDS: ALBUTEROL 2.5 MG/3 ML NEB RESP TX SCH ×4 (00:34→18:57)
[2021-11-27 05:52] LABS: Basophils % 0.4 % (0.0-0.8); Eosinophils # 0.3 10*3/uL (0.0-0.87); Eosinophils % 2.8 % (0.00-10.9); Hematocrit 42.6 VOL% (42.0-52.0); Hemoglobin 13.9 GM/DL (14.0-18.0); Immature Granulocytes % 0.4 %; Immature Granulocytes Absolute 0.04 #; Lymphocytes % 22.1 % (21.2-54.2); Mean Corpuscular HGB Conc 32.6 GM/DL (32-36); Mean Platelet Volume 10.4 FL (9.6-12.0); Monocytes # 0.8 10*3/uL (0.11-0.8); Monocytes % 8.8 % (1.7-12.7); Neutrophils % 65.5 % (38.7-73.9); Platelet Count 282 T/CUMM (130-400); Red Blood Count 4.58 MC/CUMM (3.8-5.5); Red Cell Distribution Width 12.9 % (9.3-17.3); White Blood Count 8.9 T/CUMM (4-12)
[2021-11-27 06:00] LABS: Albumin 3.2 G/DL (3.4-5.0); Calcium 8.3 MG/DL (8.5-10.1); Osmolality,Calculated 294.3 MOS/KG (273-304); Potassium 3.6 MMOL/L (3.5-5.1); Total Protein 6.2 G/DL (6.4-8.2)
[2021-11-27] MEDS ORDERED: diphenhydrAMINE CAP 50 MG CAPSULE PO ONE (07:16)
[2021-11-27] MEDS ORDERED: DIAZEPAM 5 MG TABLET PO ONE (07:16)
[2021-11-27] MEDS: VALSARTAN 80 MG TABLET PO SCH (08:16)
[2021-11-27] MEDS: ASCORBIC ACID 500 MG TABLET PO SCH ×2 (08:16→21:24)
[2021-11-27] MEDS: DOXAZOSIN 1 MG TABLET PO SCH (08:16)
[2021-11-27] MEDS: PANTOPRAZOLE 40 MG TABLET PO SCH (08:16)
[2021-11-27] MEDS: FLECAINIDE 100 MG TABLET PO SCH ×2 (08:16→21:24)
[2021-11-27] MEDS: INSULIN LISPRO 100 UNIT/ML SUBCUT SCH ×7 (08:16→21:25)
[2021-11-27] MEDS: INSULIN NPH 100 UNIT/ML SUBCUT SCH ×2 (08:17→21:23)
[2021-11-27] MEDS ORDERED: HEPARIN/NACL 0.9% 2 UNITS/ML 2,000 UNIT/1,000 ML BAG IV ONE (09:21)
[2021-11-27] MEDS ORDERED: LIDOCAINE 1%/EPI INJ 20 ML VIAL ONE (09:21)
[2021-11-27] MEDS ORDERED: MIDAZOLAM 2 MG/2 ML VIAL ONE (09:46)
[2021-11-27] MEDS ORDERED: fentaNYL 100 MCG/2 ML VIAL ONE (09:46)
[2021-11-27] MEDS ORDERED: ceFAZolin 1,000 MG VIAL ONE (10:20)
[2021-11-27] MEDS: FLUTICASONE 50 MCG NASAL SPRAY 16 GM BOTTLE BOTH NARES SCH ×2 (12:25→21:25)
[2021-11-27] MEDS: FLUTICASONE/SALMETEROL 250-50 DISKUS 14 DOSE INH SCH ×2 (12:26→21:24)
[2021-11-27] MEDS: SODIUM CHLORIDE 0.45% 1,000 ML IV SCH ×2 (14:08→19:24)
[2021-11-27] MEDS: ATORVASTATIN 20 MG TABLET PO SCH (21:24)
[2021-11-27] MEDS: ASPIRIN EC 81 MG TABLET PO SCH (21:24)
[2021-11-27] MEDS: ZALEPLON 5 MG CAPSULE PO PRN (21:29)
[2021-11-28] MEDS: ALBUTEROL 2.5 MG/3 ML NEB RESP TX SCH ×2 (00:18→07:03)
[2021-11-28] MEDS: INSULIN LISPRO 100 UNIT/ML SUBCUT SCH ×2 (08:24→09:21)
[2021-11-28 08:44] LABS: Calcium 8.4 MG/DL (8.5-10.1); Potassium 3.7 MMOL/L (3.5-5.1)
[2021-11-28 09:16] VITALS: BP 145/61
[2021-11-28] MEDS: DOXAZOSIN 1 MG TABLET PO SCH (09:22)
[2021-11-28] MEDS: FLECAINIDE 100 MG TABLET PO SCH (09:22)
[2021-11-28] MEDS: FLUTICASONE 50 MCG NASAL SPRAY 16 GM BOTTLE BOTH NARES SCH (09:23)
[2021-11-28] MEDS: ASCORBIC ACID 500 MG TABLET PO SCH (09:23)
[2021-11-28] MEDS: PANTOPRAZOLE 40 MG TABLET PO SCH (09:23)
[2021-11-28] MEDS: VALSARTAN 80 MG TABLET PO SCH (09:23)
[2021-11-28] MEDS: INSULIN NPH 100 UNIT/ML SUBCUT SCH (09:24)
[2021-11-28] MEDS: FLUTICASONE/SALMETEROL 250-50 DISKUS 14 DOSE INH SCH (09:24)
== END 2021-11-28 12:51 | disposition home or self-care (01) ==
LOC: N.ED 09:16 → INTOOBSV 11:36 → N.TELEN 14:06
PROVIDERS: ADMIT Internal Medicine Interventional Cardiology; ATTEND Internal Medicine Interventional Cardiology
PROC: CLCCHCL (ICD-10-PCS; 2021-11-27 10:45)